=== PATIENT | male | born 1955 | race Caucasian/White ===

== ENCOUNTER 2023-05-24 10:10 | Inpatient (IN) | payer MEDICARE, SELFPAY ==
[2023-05-24] VITALS (42 sets, daily range): BP systolic 94–154; BP diastolic 52–94; PULSE 62–94; RESP 10–28; TEMP 35.8–37.1; O2SAT 91–100
--- NOTE | 2023-05-24 10:20 | ED.SOB ---
HPI - SOB/Dyspnea General Chief Complaint: Shortness of Breath/Dyspnea Stated Complaint: SOB Time Seen by Provider: 05/24/23 10:17 History of Present Illness HPI Narrative: Patient is a 68-year-old male with 75 pack-year smoking history presents today with shortness of breath ongoing for 1 week. He reports that 1 week ago he had sudden onset shortness of breath were he felt like ?fish out of water.He says it lasted for about 15 minutes and then it slowly got better. He does not feel back to his normal self but is feeling better. Feels like he can not quite catch his breath. He denies productive cough or fever. During the episode he felt like his chest was tight but now he is not quite feeling like his chest is tight but does have some difficulty shortness of breath with exertion. Related Data Home Medications Medication Instructions Recorded Confirmed No Known Home Medications 05/24/23 05/24/23 Allergies Allergy/AdvReac Type Severity Reaction Status Date / Time No Known Drug Allergies Allergy Verified 05/24/23 11:47 Review of Systems Review of Systems ROS Unobtainable: All systems reviewed & are unremarkable except as noted in HPI and below Patient History Social History household members: family Smoking Status: Current every day smoker alcohol intake: never Exam Initial Vital Signs Initial Vital Signs: Vital Signs Temperature 97.6 F 05/24/23 10:18 Pulse Rate 86 05/24/23 10:18 Respiratory Rate 20 05/24/23 10:18 Blood Pressure 144/82 H 05/24/23 10:18 Pulse Oximetry 97 05/24/23 10:18 Oxygen Delivery Method Room Air 05/24/23 10:18 GENERAL: Alert thin 68-year-old male and in [no acute] distress. HEENT: Head atraumatic,EOMI, pupils reactive, face symmetric, [moist] mucous membranes CARDIOVASCULAR: Regular rate and rhythm without murmurs, rubs or gallops. RESPIRATORY: Decreased breath sounds left side, clear on right ABDOMEN: Soft, nontender. Normoactive bowel sounds all 4 quadrants. No guarding or rebound. EXTREMITIES: Normal range of motion, no clubbing or edema. Neurovascularly intact NEUROLOGICAL: Alert and oriented x4. SKIN: Warm, dry, no laceration, no petechiae, no rashes or lesions. Procedures Chest Tube Chest Tube 1: Chest Tube Location: left and mid axillary line Size of Tube (cm): 20 Chest Tube Prep: Yes sterile drapes applied Local Anesthetic: lidocaine 1% and with epi Amount of anesthesia used (mL): 5 Incision Made With: #11 blade Post Procedure: sutured to skin and sterile dressing applied Tube Drainage: none Post Procedure CXR?: Yes Patient Tolerated Procedure: Yes Complications: tube needs to be repositioned Progress: tube advanced re xrayed and in more acceptable position Procedural Sedation Time out performed: Yes Indication: other (chest tube) IV Propofol dose (mg): 85 Intraservice time/total sedation time (min): 16 ED Sedation Level: Moderate (Concious) Patient Tolerated Procedure: Well and No complications Complications: none Course Orders Ordered: ED Orders 05/24/23 10:21 XR chest 1V Stat EKG-12 Lead Stat Measure peak expiratory flow ONCE RT Consult Eval and Treat NOW 05/24/23 10:35 Complete Blood Count AUTO DIFF Stat Comprehensive Metabolic Panel Stat Lactate (Lactic Acid) Stat NT-proBNP (BNP-Adult 18+) Stat Prothrombin Time INR Stat Troponin I Stat 05/24/23 11:31 Chest [XR chest 1V] Stat 05/24/23 11:46 Covid-19 + FLU A/B + RSV - PCR Stat Education, smoking cessation ONGOING 05/24/23 12:00 XR chest 1V DAILY Acetaminophen (Acetaminophen 325 Mg Tablet) 650 mg PO Q6H [facility] Last Admin: 05/24/23 18:16 Dose: Not Given Documented By: Admin: 05/24/23 14:12 Dose: Not Given Documented By: TLS Enoxaparin Sodium (Enoxaparin 40 Mg/0.4 Ml Syringe) 40 mg SUBCUT DAILY [facility] Ibuprofen (Ibuprofen 600 Mg Tablet) 600 mg PO Q6H [facility] Last Admin: 05/24/23 18:35 Dose: 600 mg Documented By: Admin: 05/24/23 14:16 Dose: 600 mg Documented By: TLS Naloxone HCl (Naloxone 0.4 Mg/Ml Vial) 0.2 mg IV Q2MIN PRN PRN Reason: Opiate Reversal Last Admin: 05/24/23 17:43 Dose: 0.2 mg Documented By: AMY Oxycodone HCl (Oxycodone Ir 5 Mg Tablet) 5 mg PO Q3H PRN PRN Reason: Pain, Moderate (4-6) Last Admin: 05/24/23 16:27 Dose: 5 mg Documented By: CLL Discontinued Medications Hydrocodone Bitart/Acetaminophen (Hydrocodone/Acet 5/325 Tablet) 1 tab PO NOW ONE Stop: 05/24/23 12:30 Last Admin: 05/24/23 12:33 Dose: 1 tab Documented By: SPF Albuterol/Ipratropium (Albuterol/Ipratropium 3 Ml Ampul) 6 ml INH NOW ONE Stop: 05/24/23 10:36 Last Admin: 05/24/23 10:37 Dose: 6 ml Documented By: LEÓNF Hydromorphone HCl (Hydromorphone 0.5 Mg Inj) 0.5 mg IV NOW ONE Stop: 05/24/23 11:46 Last Admin: 05/24/23 11:47 Dose: 0.5 mg Documented By: SPF Nicotine (Nicotine 21 Mg Patch) 21 mg TOP NOW ONE Stop: 05/24/23 12:30 Last Admin: 05/24/23 14:15 Dose: 21 mg Documented By: TLS Propofol (Propofol 200 Mg/20 Ml Vial) 55 mg 1 mg/kg (55 mg) IV NOW ONE Stop: 05/24/23 11:12 Last Admin: 05/24/23 11:15 Dose: 55 mg Documented By: OW Propofol (Propofol 200 Mg/20 Ml Vial) 30 mg IV NOW ONE Stop: 05/24/23 11:37 Last Admin: 05/24/23 11:24 Dose: 30 mg Documented By: OW Vital Signs Vital signs: Vital Signs - 8 hr 05/24/23 11:00 05/24/23 11:04 05/24/23 11:10 Pulse Rate 83 83 86 Respiratory Rate 10 L 10 L 14 Blood Pressure 143/90 H 131/86 138/94 H Pulse Oximetry 97 96 95 Oxygen Delivery Method Room Air Room Air Room Air Oxygen Flow Rate 05/24/23 11:15 05/24/23 11:19 05/24/23 11:20 Pulse Rate 84 85 82 Respiratory Rate 16 11 L 21 Blood Pressure 141/93 H 104/69 97/63 Pulse Oximetry 96 94 91 Oxygen Delivery Method Room Air Room Air Room Air Oxygen Flow Rate 05/24/23 11:25 05/24/23 11:00 05/24/23 11:35 Pulse Rate 92 H 86 88 Respiratory Rate 16 14 12 Blood Pressure 110/76 111/52 L Pulse Oximetry 100 99 Oxygen Delivery Method Ambu Bag Room Air Oxygen Flow Rate 15 05/24/23 11:36 05/24/23 11:40 05/24/23 11:40 Pulse Rate 86 85 Respiratory Rate 14 17 Blood Pressure 101/60 95/71 Pulse Oximetry 98 97 Oxygen Delivery Method Room Air Room Air Oxygen Flow Rate 05/24/23 11:45 05/24/23 11:45 Pulse Rate 78 Respiratory Rate 17 Blood Pressure 94/72 Pulse Oximetry 97 Oxygen Delivery Method Room Air Oxygen Flow Rate MDM - SOB/Dyspnea Lab Data 05/24/23 10:35 05/24/23 10:35 Labs: Lab Results 05/24/23 05/24/23 05/24/23 Range/Units 10:35 10:35 10:35 WBC 7.7 (4.5-11.0) X10^3/uL RBC 5.01 (4.5-5.9) X10^6/uL Hgb 16.4 (13.5-17.5) g/dL Hct 45.9 (41-53) % MCV 91.6 (80-100) fL MCH 32.8 (26-34) PG MCHC 35.8 (30-36) % RDW 14.2 (11.6-14.8) % Plt Count 261 (150-400) X10^3/uL Neut % (Auto) 60.1 (50-75) % Lymph % (Auto) 25.2 (25-40) % [place] % (Auto) 8.9 (3-14) % Eos % (Auto) 4.5 H (2-4) % Baso % (Auto) 1.3 (0-2) % Neut # (Auto) 4700 (3892-5267) /uL Lymph # (Auto) 2000 (6873-3157) /uL [place] # (Auto) 700 (0-900) /uL Eos # (Auto) 300 (0-450) /uL Baso # (Auto) 100 (0-100) /uL PT 12.9 H (10.1-12.7) SECONDS INR 1.1 (0.9-1.3) Sodium 136 L (137-145) mmol/L Potassium 4.2 (3.4-5.1) mmol/L Chloride 100 (98-107) mmol/L Carbon Dioxide 27 (22-32) mmol/L BUN 22 H (9-20) mg/dL Creatinine 0.95 (0.66-1.25) mg/dL Estimated GFR > 60 (>60) mL/min BUN/Creatinine Ratio 23.2 H (6-22) Glucose 110 (80-110) mg/dL Lactate (0.7-2.1) mmol/L Calcium 9.5 (8.4-10.2) mg/dL Total Bilirubin 0.8 (0.2-1.3) mg/dL AST 33 (17-59) IU/L ALT 24 (<50) IU/L Alkaline Phosphatase 62 (38-126) U/L Troponin I < 0.012 (0.01-0.034) ng/mL NT-Pro-B Natriuret Pep 41 (<125) pg/mL Total Protein 7.7 (6.3-8.2) g/dL Albumin 4.6 (3.5-5.0) g/dL Globulin 3.1 (1.7-4.1) g/dL Albumin/Globulin Ratio 1.5 (1.0-2.8) SARS-CoV-2 (PCR) (Negative) Influenza A (RT-PCR) (NEGATIVE) Influenza B (RT-PCR) (NEGATIVE) RSV (PCR) (Negative) 05/24/23 05/24/23 Range/Units 10:35 11:46 WBC (4.5-11.0) X10^3/uL RBC (4.5-5.9) X10^6/uL Hgb (13.5-17.5) g/dL Hct (41-53) % MCV (80-100) fL MCH (26-34) PG MCHC (30-36) % RDW (11.6-14.8) % Plt Count (150-400) X10^3/uL Neut % (Auto) (50-75) % Lymph % (Auto) (25-40) % [place] % (Auto) (3-14) % Eos % (Auto) (2-4) % Baso % (Auto) (0-2) % Neut # (Auto) (3187-1735) /uL Lymph # (Auto) (3525-0910) /uL [place] # (Auto) (0-900) /uL Eos # (Auto) (0-450) /uL Baso # (Auto) (0-100) /uL PT (10.1-12.7) SECONDS INR (0.9-1.3) Sodium (137-145) mmol/L Potassium (3.4-5.1) mmol/L Chloride (98-107) mmol/L Carbon Dioxide (22-32) mmol/L BUN (9-20) mg/dL Creatinine (0.66-1.25) mg/dL Estimated GFR (>60) mL/min BUN/Creatinine Ratio (6-22) Glucose (80-110) mg/dL Lactate 2.0 (0.7-2.1) mmol/L Calcium (8.4-10.2) mg/dL Total Bilirubin (0.2-1.3) mg/dL AST (17-59) IU/L ALT (<50) IU/L Alkaline Phosphatase (38-126) U/L Troponin I (0.01-0.034) ng/mL NT-Pro-B Natriuret Pep (<125) pg/mL Total Protein (6.3-8.2) g/dL Albumin (3.5-5.0) g/dL Globulin (1.7-4.1) g/dL Albumin/Globulin Ratio (1.0-2.8) SARS-CoV-2 (PCR) Negative (Negative) Influenza A (RT-PCR) Flu a negative (NEGATIVE) Influenza B (RT-PCR) Flu b negative (NEGATIVE) RSV (PCR) Negative (Negative) Imaging Data Chest x-ray: My Impression: large left pneumothorax Radiologist's Impression: PROCEDURE:? XR CHEST 1V ? INDICATIONS:? Shortness of breath ? TECHNIQUE:? One view of the chest was acquired.? ? COMPARISON:? None. ? FINDINGS:? ? Surgical changes and devices:? None.? ? Lungs and pleura:? Large left-sided pneumothorax with near complete collapse of the lower lobe and moderate collapse of the upper lobe.? There is moderate mediastinal shift to the right.? ? Mediastinum:? The mediastinum is deviated to the right. ? Bones and chest wall:? No suspicious bony lesions.? Overlying soft tissues appear unremarkable.? ? IMPRESSION: ? Left tension pneumothorax. ? Dr. Sifuentes discussed the above findings with Gabby Waller of the ER at 10am [place] time 05/24/23 ? Dictated by: Simon Sifuentes M.D. on 05/24/2023 at 9:58 CXR 2: Radiologist's Impression: PROCEDURE:? XR CHEST 1V ? INDICATIONS:? chest tube ? TECHNIQUE:? One view of the chest was acquired.? ? COMPARISON:? [facility], CR, XR CHEST 1V, 05/24/2023, 10:27. ? FINDINGS:? ? Surgical changes and devices:? Left apically oriented chest tube with side port projecting over the thoracic cavity. ? Lungs and pleura:? Lungs are clear.? Small residual basilar and apical pneumothorax, significantly decreased from comparison. ? Mediastinum:? Mediastinal contours appear normal.? Heart size is normal.? ? Bones and chest wall:? No suspicious bony lesions.? Overlying soft tissues appear unremarkable.? ? IMPRESSION:? Significant decrease in size of left-sided pneumothorax. Resolution of mediastinal shift. ? ? Dictated by: Simon Sifuentes M.D. on 05/24/2023 at 10:45? CXR 3: Radiologist's Impression: PROCEDURE:? XR CHEST 1V ? INDICATIONS:? pnx ? TECHNIQUE:? One view of the chest was acquired.? ? COMPARISON:? [facility], CR, XR CHEST 1V, 05/24/2023, 10:27.? [facility], CR, XR CHEST 1V, 05/24/2023, 11:26. ? FINDINGS:? ? Surgical changes and devices:? Left apically oriented chest tube.? ? Lungs and pleura:? Decreased AP:? Basilar pneumothorax.? Left airspace opacities which may reflect atelectasis versus edema.? No pleural effusions or pneumothorax.? ? Mediastinum:? Mediastinal contours appear normal.? Heart size is normal.? ? Bones and chest wall:? No suspicious bony lesions.? Overlying soft tissues appear unremarkable.? ? IMPRESSION:? Continued decrease in size of left pneumothorax with left airspace opacities likely representing atelectasis versus edema ? ? Dictated by: Simon Sifuentes M.D. on 05/24/2023 at 12:30? ECG Data Interpretation: Normal sinus rhythm rate 89 AZ interval 162 QRS [address] changes MDM Narrative Medical decision making narrative: Patient 68-year-old male history of tobacco abuse presents today with sudden onset shortness of breath 1 week ago resolving. Chest x-ray reviewed by myself shows a large pneumothorax. Patient's vitals are stable surprisingly no hypotension or significant hypoxia. He is moved to a different room procedure sedation chest tube placed. However after review it does need eat to be advanced. Dr. Lam updated on patient's symptoms test results agrees with advancement tube and accepts patient. Discharge Plan Departure Patient Disposition: Admitted As Inpatient Clinical Impression: Pneumothorax Admit Date/Time: 05/24/23 11:46 Admit Provider: Darvin Nobles
--- NOTE | 2023-05-24 10:21 | DI.RAD.S_ITS ---
PROCEDURE: XR CHEST 1V INDICATIONS: Shortness of breath TECHNIQUE: One view of the chest was acquired. COMPARISON: None. FINDINGS: Surgical changes and devices: None. Lungs and pleura: Large left-sided pneumothorax with near complete collapse of the lower lobe and moderate collapse of the upper lobe. There is moderate mediastinal shift to the right. Mediastinum: The mediastinum is deviated to the right. Bones and chest wall: No suspicious bony lesions. Overlying soft tissues appear unremarkable. IMPRESSION: Left tension pneumothorax. Dr. Sifuentes discussed the above findings with Gabby Waller of the ER at 10am [place] time 05/24/23 Dictated by: Simon Sifuentes M.D. on 05/24/2023 at 9:58 Approved by: Simon Sifuentes M.D. on 05/24/2023 at 10:03
[2023-05-24] MEDS: ALBUTEROL/IPRATROPIUM 3 ML AMPUL 6 ML INH (10:37)
[2023-05-24 10:48] LABS: Add Manual Diff / Slide Review NO; Basophils Absolute Auto 100 /uL (0-100); Basophils Percent Auto 1.3 % (0-2); Eosinophils Absolute Auto 300 /uL (0-450); Eosinophils Percent Auto 4.5 % (2-4); Hematocrit 45.9 % (41-53); Hemoglobin 16.4 g/dL (13.5-17.5); Lymphocytes Absolute Auto 2000 /uL (1100-4500); Lymphocytes Percent Auto 25.2 % (25-40); Mean Corpuscular HGB Conc 35.8 % (30-36); Mean Corpuscular Hemoglobin 32.8 PG (26-34); Mean Corpuscular Volume 91.6 fL (80-100); Monocytes Absolute Auto 700 /uL (0-900); Monocytes Percent Auto 8.9 % (3-14); Neutrophils Absolute Auto 4700 /uL (1500-7000); Neutrophils Percent Auto 60.1 % (50-75); Platelet Count 261 X10^3/uL (150-400); Red Blood Cell Count 5.01 X10^6/uL (4.5-5.9); Red Cell Distribution Width 14.2 % (11.6-14.8); White Blood Cell Count 7.7 X10^3/uL (4.5-11.0)
[2023-05-24 10:49] LABS: INR 1.1 (0.9-1.3); Prothrombin Time 12.9 SECONDS (10.1-12.7)
[2023-05-24 10:53] LABS: Alanine Aminotransferase 24 IU/L (<50); Albumin 4.6 g/dL (3.5-5.0); Albumin Globulin Ratio 1.5 (1.0-2.8); Alkaline Phosphatase 62 U/L (38-126); Aspartate Aminotransferase 33 IU/L (17-59); BUN Creatinine Ratio 23.2 (6-22); Bilirubin Total 0.8 mg/dL (0.2-1.3); Blood Urea Nitrogen 22 mg/dL (9-20); Calcium 9.5 mg/dL (8.4-10.2); Carbon Dioxide 27 mmol/L (22-32); Chloride 100 mmol/L (98-107); Estimated Glomerular Filt Rate > 60 mL/min (>60); Globulin 3.1 g/dL (1.7-4.1); Glucose 110 mg/dL (80-110); HEMOLYSIS 30 (0-50); Potassium 4.2 mmol/L (3.4-5.1); Sodium 136 mmol/L (137-145); Total Protein 7.7 g/dL (6.3-8.2)
--- NOTE | 2023-05-24 11:04 | PC.NURSE ---
This RN gave further education about chest tube placement and his plan of care to be admitted to the hospital. Pt has no further questions at this time. Pt airway is patent. He speaks in full clear sentences and respirations are even and unlabored. Pt is A&Ox4 and his daughter is at the bedside. RT at bedside, crash cart in room, RN is setting up for chest tube placement, wall suction on and ready and pt is on continuous cardiac monitoring with End tidal, SpO2 and BP going Q10min.
[2023-05-24 11:05] LABS: NT-proBNP (BNP-Adult 18+) 41 pg/mL (<125); Troponin I < 0.012 ng/mL (0.01-0.034)
[2023-05-24] MEDS: propofoL 200 MG/20 ML VIAL 55 MG IV (11:15)
[2023-05-24] MEDS: propofoL 200 MG/20 ML VIAL 30 MG IV (11:24)
--- NOTE | 2023-05-24 11:31 | DI.RAD.S_ITS ---
PROCEDURE: XR CHEST 1V INDICATIONS: chest tube TECHNIQUE: One view of the chest was acquired. COMPARISON: [facility], CR, XR CHEST 1V, 05/24/2023, 10:27. FINDINGS: Surgical changes and devices: Left apically oriented chest tube with side port projecting over the thoracic cavity. Lungs and pleura: Lungs are clear. Small residual basilar and apical pneumothorax, significantly decreased from comparison. Mediastinum: Mediastinal contours appear normal. Heart size is normal. Bones and chest wall: No suspicious bony lesions. Overlying soft tissues appear unremarkable. IMPRESSION: Significant decrease in size of left-sided pneumothorax. Resolution of mediastinal shift. Dictated by: Simon Sifuentes M.D. on 05/24/2023 at 10:45 Approved by: Simon Sifuentes M.D. on 05/24/2023 at 10:46
--- NOTE | 2023-05-24 11:37 | PC.NURSE ---
L sided chest tube has been placed, sutured and dressed. Chest XR applied to verify placement and re-expansion of lungs. Pt is alert and reports pain to L chest wall. Md notified of pain. Respirations are unlabored and pt has equal chest rise. Pt's skin is warm pink and dry. Pt has strong cough.
[2023-05-24] MEDS: HYDROMORPHONE 0.5 MG INJ IV (11:47)
--- NOTE | 2023-05-24 12:00 | DI.RAD.S_ITS ---
PROCEDURE: XR CHEST 1V INDICATIONS: pnx TECHNIQUE: One view of the chest was acquired. COMPARISON: [facility], CR, XR CHEST 1V, 05/24/2023, 10:27. [facility], CR, XR CHEST 1V, 05/24/2023, 11:26. FINDINGS: Surgical changes and devices: Left apically oriented chest tube. Lungs and pleura: Decreased AP: Basilar pneumothorax. Left airspace opacities which may reflect atelectasis versus edema. No pleural effusions or pneumothorax. Mediastinum: Mediastinal contours appear normal. Heart size is normal. Bones and chest wall: No suspicious bony lesions. Overlying soft tissues appear unremarkable. IMPRESSION: Continued decrease in size of left pneumothorax with left airspace opacities likely representing atelectasis versus edema Dictated by: Simon Sifuentes M.D. on 05/24/2023 at 12:30 Approved by: Simon Sifuentes M.D. on 05/24/2023 at 12:33
[2023-05-24 12:31] LABS: Influenza A - CEPHEID Flu A NEGATIVE (NEGATIVE); Influenza B - CEPHEID Flu B NEGATIVE (NEGATIVE); Respiratory Syncytial Virus Negative (Negative)
[2023-05-24 12:32] LABS: COVID-19 CEPHEID 4-PLEX PCR Negative (Negative)
[2023-05-24] MEDS: HYDROCODONE/ACET 5/325 TABLET 1 TAB PO (12:33)
--- NOTE | 2023-05-24 13:04 | PC.NURSE ---
Patient was administered pain medications PO (see MAR) with water. Pt was able to take two sips of water. Pt still felt the need to swallow the pill and had a third sip of water, which he aspirated with. Immediately pt was sat up and pt's mouth was suctioned. Pt sitting up and catching his breath. oxygen saturation 96% room air.
[2023-05-24] MEDS: NICOTINE 21 MG PATCH TOP (14:15)
[2023-05-24] MEDS: IBUPROFEN 600 MG TABLET PO ×3 (14:16→23:17)
--- NOTE | 2023-05-24 15:56 | PC.NURSE ---
Addendum entered by Suha Piña R.N. 05/24/23 17:55: Patient given narcan after taking 5mg of oral oxycodone. He became clammy and sweaty and complained of not feeling well. Talked to hospitalist for a recommendation on what to do as patient was completely alert and oriented x4, and awake. His idea was to give Narcan. Phoned Dr. Nobles and he was agreeable to give patient the narcan. This was given and patient is feeling much better. He is drinking water without any choking episodes. Original Note: Patients Chest tube insertion site dressing is cdi. Patient given some ibuprofen and is comfortable and resting. Chest tube to 20mm of suction and there are no bubbles present in chamber of chest tube. Putting out minimal drainage. Will reassess patient and if he needs pain medication, will give him some oxycodone. He states that he is not a fan of narcotics. Resting comfortably at this time.
[2023-05-24] MEDS: OXYCODONE IR 5 MG TABLET PO (16:27)
[2023-05-24] MEDS: NALOXONE 0.4 MG/ML VIAL 0.2 MG IV (17:43)
[2023-05-24] MEDS: ACETAMINOPHEN 325 MG TABLET 650 MG PO (23:16)
[2023-05-25] VITALS (11 sets, daily range): BP systolic 116–130; BP diastolic 76–91; PULSE 70–80; RESP 16–22; TEMP 36.6–37.4; O2SAT 94–98
[2023-05-25] MEDS: ACETAMINOPHEN 325 MG TABLET 650 MG PO (05:58)
[2023-05-25] MEDS: IBUPROFEN 600 MG TABLET PO (05:58)
--- NOTE | 2023-05-25 09:06 | CM.DANOTE ---
DCP: Case received, EMR reviewed and met with patient. Daughter was at bedside. Introduced self and role. Was able to obtain information regarding patient's baseline activity level prior to hospitalization. DCP assessment completed with information currently available. Patient is a 68 year old male who admitted yesterday morning to the care of the hospitalist team. PCP: None currently, spouse is looking into getting patient appt with her primary care provider, Dr. Sepulveda. Payer: confirmed: Medicare. Patient came to the hospital via private vehicle secondary to having increased shortness of breath. Notes indicae that patient is a smoker. Patient had been having difficulties catching his breath. Patient was diagnosed with pneumothorax, and currently has a chest tube in place. Met with patient in his room, he was laying in bed, daughter at bedside. Patient resides here in [place] with spouse, [place]. He is employed at [employer], and is independent at baseline. He is a smoker. Daughter indicated, he got this pneumothorax from smoking. He does not have a primary provider, but mentioned that his spouse sees Dr. Sepulveda at [facility], and is working on getting patient in. Patient also sees a chiropractor for left shoulder pain, which is bothering him today. P: DCP to continue to follow. Plan is home when deemed medically stable. May need to follow up with a filler leaf cutter long. Jazz Rojo RN/Occupational Therapist Assistants Discharge Planning/Care Management CM Discharge Assessment Start: 05/25/23 09:04 Freq: Status: Active Protocol: Document 05/25/23 09:05 (Rec: 05/25/23 09:06 [id number]) Discharge Planning Assessment Assigned Retail Representative Jazz Rojo RN/Occupational Therapist Assistants Advance Directives? No History Provided By Patient,Family Member,Medical Record Prior Living Arrangements House Household Members spouse,family Type of transporation used prior to Drives own vehicle admit Independent with ADL's Yes Is patient alert and oriented? Yes Caregiver for Another No Barriers to Discharge No Comment Does not have primary care provider, but spouse will work on getting patient in to see Dr. Sepulveda., which is her provider. Discharge Plan Home Transportation Arrangement Daughter or spouse. Referrals Initiated None needed Whiteboard Updated in Patient Room with Yes name and ext. # of Retail Representative Review Status In Process Next Review Type Continued Stay Review
[2023-05-25] MEDS: ENOXAPARIN 40 MG/0.4 ML SYRINGE SUBCUT (09:17)
--- NOTE | 2023-05-25 09:24 | DI.CT.S_ITS ---
PROCEDURE: CT CHEST W CON INDICATIONS: SPONTANEUOS PNEMOTHORAX TECHNIQUE: After the administration of intravenous contrast, 5 mm thick sections acquired from the pulmonary apices to the posterior costophrenic angles. 1 mm axial lung, 5 mm thick coronal and sagittal reformats and 7 mm axial MIP were acquired. For radiation dose reduction, the following was used: automated exposure control, adjustment of mA and/or kV according to patient size. COMPARISON: [facility], CR, XR CHEST 1V, 05/24/2023, 12:11. FINDINGS: Image quality: Good Lungs and pleura: Emphysema. Scattered scarring and atelectasis. Moderate airspace disease is seen in the left lung. More focal consolidation is seen at the left base measuring about 2.6 x 1.8 cm (5/36). No pleural effusions on the right. A trace left pleural effusion is present. A left chest tube terminates at the left apex. A trace pneumothorax is present. Adjacent left chest wall subcutaneous emphysema is seen. Mediastinum, heart, and esophagus: No hiatal hernia. Normal heart size. Coronary and annular calcifications of the heart. Prominent mediastinal hilar lymph nodes may be reactive in this clinical setting, attention on follow-up. Debris and fluid is seen in the left-sided bronchi. Chest wall and thyroid: Body habitus suggestive of chronic obstructive lung disease. Chest wall is otherwise unremarkable. Upper abdomen: No gross abnormality, partially visualized. Bones: No acute or suspicious osseous finding. IMPRESSION: Left chest tube in place. The tip is at the left lung apex. Trace residual pneumothorax. Trace left pleural effusion. Left-sided endobronchial debris. Moderate left airspace disease in the lingula and lower lobe, likely infectious/inflammatory, possibly related to aspiration. A more focal consolidation measuring 2.6 x 1.8 cm is seen at the left base. Short interval follow-up chest CT recommended to assess for evolution depending on clinical course. Emphysematous changes. Dictated by: Orlando Devi M.D. on 05/25/2023 at 10:31 Approved by: Orlando Devi M.D. on 05/25/2023 at 10:37
[2023-05-25] MEDS: GABAPENTIN 100 MG CAPSULE 200 MG PO ×3 (09:59→20:08)
[2023-05-25] MEDS: CELECOXIB 200 MG CAPSULE PO ×2 (09:59→20:08)
--- NOTE | 2023-05-25 11:20 | PM.HP.1 ---
History of Present Illness History of Present Illness Date Patient Seen: 05/25/23 Time Patient Seen: 08:30 Chief complaint: SOB Narrative: Seen and treated in ED for left sided, spontaneous PTX. Patient symptoms started about a week ago and just never improved. Had sharp pain in chest and shortness of breath. H/o smoking. And a history of shoulder problems. He biggest complaint today is the shoulder pain. [facility] Social History household members: spouse and family Smoking Status: Current every day smoker alcohol intake: never Meds Home Medications and Allergies Home Medications Medication Instructions Recorded Confirmed Type No Known Home Medications 05/24/23 05/24/23 History Allergies Allergy/AdvReac Type Severity Reaction Status Date / Time No Known Drug Allergies Allergy Verified 05/24/23 11:47 Review of Systems Review of Systems ROS: Yes All systems reviewed with the patient and are negative except as otherwise documented Exam Vital Signs (past 8 hours): - 05/25/23 04:45 05/25/23 08:00 05/25/23 09:00 Temperature 98.8 F 98.3 F Pulse Rate 71 75 Respiratory Rate 18 21 Blood Pressure 128/91 H 130/80 Pulse Oximetry 96 94 Oxygen Delivery Method Room Air Oxygen Flow Rate 0 0 05/25/23 09:00 Temperature Pulse Rate Respiratory Rate Blood Pressure Pulse Oximetry 97 Oxygen Delivery Method Room Air Oxygen Flow Rate Oxygen Delivery Method Room Air Oxygen Flow Rate 0 Const General: cooperative and frail appearing Nutritional Appearance: thin Orientation: alert, awake and oriented x3 HENMT Head: normocephalic and atraumatic Ears: hearing grossly normal bilaterally Eyes General: appearance normal, both eyes and all related structures Sclera: sclerae normal Neck Neck: trachea midline Chest Chest: normal inspection of the chest Other: no air leak in chest tube Resp Effort & Inspection: normal respiratory effort and able to speak in complete sentences Cardio Rate: regular rate Rhythm: regular rhythm GI Inspection: normal to inspection Palpation: soft Skin General: atrophy Neuro General: patient alert, patient awake and patient oriented x3 Cognition: normal cognition Extrem Left upper extremity: shoulder/upper arm (no deformities on PE or CXR) Psych Mental Status: mental status grossly normal Judgment: judgment good Objective Labs 05/24/23 10:35 05/24/23 10:35 Labs: Laboratory Results - last 24 hr 05/24/23 11:46 SARS-CoV-2 (PCR) Negative Influenza A (RT-PCR) Flu a negative Influenza B (RT-PCR) Flu b negative RSV (PCR) Negative Assessment & Plan Assessment & Plan narrative: Spontaneous left PTX likely due to bleb CT scan of Chest confirms Bleb disease, no masses. Emphysema. No residual PTX. Plan: Water seal, repeat CXR in am with probable removal of chest tube tomorrow. Have PCP order outpatient PT vs ortho consult for left should pain. PT here. Time Spent With Patient Time with patient: 50 to 69 minutes with 50% spent counseling/coordinating care Quality VTE Deep Vein Thrombosis/Pulmonary Embolism Present on Admission: No
--- NOTE | 2023-05-25 15:34 | PT.IIE ---
Physical Therapy Inpatient Evaluation/Re-Eval M1 PT/OT-IP Prior Functional Status Start: 05/25/23 11:53 Freq: NEEDED Status: Active Protocol: Document 05/25/23 15:34 AW (Rec: 05/25/23 15:50 AW [id number]) Medical Review Prior Functional Status Medical History Reviewed Yes Communication WNL. No known deficits. Mobility and Gait Independent without AD and without meaningful limitation. Activities of Daily Living and IADL's Independent. Social History Household Members spouse,family Living Arrangements House Number of Floors (Floors) One Floor Number of Stairs To Enter/Railing? 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 Son lives nearby. M2 PT-IP Current Condition Start: 05/25/23 11:53 Freq: NEEDED Status: Active Protocol: Document 05/25/23 15:34 AW (Rec: 05/25/23 15:50 AW [id number]) Physical Therapy Current Condition Current Condition Evaluation Date 05/25/23 Treatment Diagnosis left pneumothorax; chronic left shoulder pain Onset Date 05/18/23 M3 PT-IP Subjective Start: 05/25/23 11:53 Freq: NEEDED Status: Active Protocol: Document 05/25/23 15:34 AW (Rec: 05/25/23 15:50 AW [id number]) Subjective Physical Therapy Visit Type Type Initial Evaluation Visit Start Time 15:14 Visit Stop Time 15:34 Total Visit Minutes 20 Physical Therapy Visit Comments Patient Comments Pt is willing to participate with PT Therapy Pain Assessment Pain When Pain Assessed During Mobility Pain Present Pain Present Pain Reported Location Left Shoulder Scale Used not quantified Pain Management Techniques Apply Cold,Modification of Treatment,Re-positioning, Timing of Activity with Medications M4 PT-IP Mobility and Gait Start: 05/25/23 11:53 Freq: NEEDED Status: Active Protocol: Document 05/25/23 15:34 AW (Rec: 05/25/23 15:50 AW [id number]) PT-Bed Mobility Assessment Supine to Sit Supine to Sit Standby Assistance Sit to Supine Sit to Supine Independent PT-Transfer Assessment Sit to and From Stand Sit to and from Stand Standby Assistance Equipment Transfer Assistive Device None Orthotic/Prosthetic Devices or Brace: Yes Transfers Transfer Destination Bed,Chair Transfer Technique Stand Step Pivot Transfer Ability Level of Assist Standby Assistance Comments Mobility Comments Pt was found resting in bed. He cautiously transitioned to sitting EOB as PT managed chest tube (on water seal). PT applied shoulder sling to LUE per MD orders. Pt stood and transferred to the chair with SBA required only for line management. Pt stood again and walked to the mirror. PT educated pt on donning and doffing the sling. Pt continued to ambulate around the room a total of 50 feet with no overt LOB or significant gait deviations other than slowed speed due to appropriate caution. He declined to walk in the hallway. With step stool and footboard as railing, pt demonstrated SBA stair climbing. Pt returned to the bed, transferring back to supine SBA. Educated pt on positioning for the left shoulder. Gait Assessment Gait Gait Assistance Required: Standby Assistance Distance (Feet) 50 Assistive Devices Assistive Device None Orthotic/Prosthetic Devices or Brace: Yes Comments Gait Comments See mobility comments. Stair Climbing Assessment Evaluation Level of Assist On Stairs Standby Assistance Devices Stair Climbing Assistive Devices None Technique/Endurance Stair Climbing Direction Ascend and Descend Stair Climbing Technique Step to Step Number of Steps Climbed 1 Query Text: Stair Climbing Set # Repetitions (reps) 4 PT-Balance Assessment Sitting Balance and Reactions Static Sitting Balance Ability Good Dynamic Sitting Balance Ability Good Standing Balance and Reactions Static Standing Balance Ability Good Dynamic Standing Balance Ability Good Device Used none Balance Tests Romberg WNL EO and EC M5 PT-IP Objective Assessments Start: 05/25/23 11:53 Freq: NEEDED Status: Active Protocol: Document 05/25/23 15:34 AW (Rec: 05/25/23 15:50 AW [id number]) Orientation Orientation/Cognition Level of Alertness Alert Orientation Name,Day of Week,Place, Situation Language Function Ability No Deficits Noted Safety Awareness Understands Safety Issues Memory Description No Deficits Noted Gross Range of Motion Upper Extremity ROM Assessment Left Impaired Lower Extremity ROM Assessment Within Functional Limits Strength Upper Extremity Strength Assessment Left Impaired Lower Extremity Strength Assessment Within Functional Limits Comments Strength Comments BLE grossly 5/5. RUE WFL. LUE with painful AROM and PROM. Sensation Assessment Sensation Gross Sensation WNL M6 PT-IP Treatment Start: 05/25/23 11:53 Freq: NEEDED Status: Active Protocol: Document 05/25/23 15:34 AW (Rec: 05/25/23 15:50 AW [id number]) Physical Therapy Treatment Education Education Provided Safety Brace Education [place],Patient Equipment Issued Equipment Type and Company Shoulder sling provided per MD orders. ([facility]) M7 PT-IP Assessment and Plan Start: 05/25/23 11:53 Freq: NEEDED Status: Active Protocol: Document 05/25/23 15:34 AW (Rec: 05/25/23 15:50 AW [id number]) PT Summary Assessment and Plan Summary Assessment Summary Richie is a 68 yo man seen for PT evaluation while admitted with spontaneous left pneumothorax. He has a chest tube this date. PLOF: Pt is independent in all regards at baseline. 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 Pt has long-standing shoulder pain (left worse than right). CLOF: Pt requires no more than SBA for mobility - primarily to manage chest tube line. Pt does present with painful AROM and PROM of the left shoulder consistent with osteoarthritis which was likely exacerbated by movement of the limb during chest tube placement. Pt is right hand dominant and is mobilizing well with shoulder sling provided per MD orders. Pt has no further acute PT needs. Recommend discharge home with assist and outpatient PT to address chronic left shoulder pain. Frequency of Treatment Frequency Of Treatment Discharge Precautions Brace LUE sling for comfort Recommendations To Nursing Amount of Assist Needed Standby Assistance Discharge Recommendations PT Discharge Recommendations Home with Assistance, Outpatient PT Transportation Needs at Discharge Private Vehicle
[2023-05-26 00:26] VITALS: BP 118/80; PULSE 70; RESP 16; TEMP 36.4; O2SAT 95
[2023-05-26 03:00] VITALS: O2SAT 94
[2023-05-26 04:41] VITALS: BP 131/76; PULSE 77; RESP 16; TEMP 36.4; O2SAT 92
--- NOTE | 2023-05-26 05:38 | DI.RAD.S_ITS ---
PROCEDURE: XR CHEST 1V INDICATIONS: PTX TECHNIQUE: One view of the chest was acquired. COMPARISON: compared to the [facility], CT, CT CHEST W CON, 05/25/2023, 9:48. [facility], CR, XR CHEST 1V, 05/24/2023, 12:11. [facility], CR, XR CHEST 1V, 05/24/2023, 11:26. FINDINGS: Surgical changes and devices: Left-sided chest tube is seen in stable position. Lungs and pleura: Left apical pneumothorax has decreased in size with trace residual air in the pleural space. Stable left lung opacities. Trace left pleural effusion. Right lung is clear. Lungs are hyperexpanded bilaterally. Mediastinum: Mediastinal contours appear normal. Heart size is normal. Bones and chest wall: Mild subcutaneous emphysema related to the chest tube, similar when compared to the prior exam. IMPRESSION: Stable left-sided chest tube with trace residual pneumothorax. Stable left-sided pulmonary opacities. There is no significant discrepancy when compared to the overnight preliminary report. Approved by: Harvey Lopez M.D. on 05/26/2023 at 8:06
[2023-05-26 08:00] VITALS: BP 110/75; PULSE 75; RESP 14; TEMP 36.5; O2SAT 95
[2023-05-26] MEDS: CELECOXIB 200 MG CAPSULE PO (08:08)
[2023-05-26] MEDS: ENOXAPARIN 40 MG/0.4 ML SYRINGE SUBCUT (08:08)
[2023-05-26] MEDS: GABAPENTIN 100 MG CAPSULE 200 MG PO ×2 (08:08→14:06)
[2023-05-26 11:00] VITALS: O2SAT 96
--- NOTE | 2023-05-26 12:15 | PM.PN.1 ---
Subjective Subjective Date Patient Seen: 05/26/23 Time Patient Seen: 12:15 Interval history: No issues over night, no air leak, repeat CXR this am on water seal shows stable enough for tube removal. Exam Vital Signs (past 8 hours): - 05/26/23 04:41 05/26/23 08:00 Temperature 97.6 F 97.7 F Pulse Rate 77 75 Respiratory Rate 16 14 Blood Pressure 131/76 110/75 Pulse Oximetry 92 95 Oxygen Flow Rate 0 0 Oxygen Delivery Method Room Air Oxygen Flow Rate 0 Narrative Exam Narrative: no air leak in Chest tube atrium. No SOB. Pain better controlled. Objective Labs 05/24/23 10:35 05/24/23 10:35 [facility] Social History household members: spouse and family Smoking Status: Current every day smoker alcohol intake: never Assessment & Plan Assessment & Plan narrative: Small residual PTX, stable. Plan: Chest tube removed and post removal CXR ordered. If CXR is ok then discharge home. Time Spent With Patient Time with patient: less than 30 minutes Quality VTE Deep Vein Thrombosis/Pulmonary Embolism Present on Admission: No
--- NOTE | 2023-05-26 13:16 | DI.RAD.S_ITS ---
PROCEDURE: XR CHEST 1V INDICATIONS: chest tube removed TECHNIQUE: One view of the chest was acquired. COMPARISON: [facility], CR, XR CHEST 1V, 05/26/2023, 5:33. [facility], CR, XR CHEST 1V, 05/24/2023, 12:11. FINDINGS: Surgical changes and devices: None. Lungs and pleura: New small left pneumothorax. Normal contour of the diaphragm. Left basilar airspace opacity. Mediastinum: Mediastinal contours appear normal. Heart size is normal. Bones and chest wall: No suspicious bony lesions. Overlying soft tissues appear unremarkable. IMPRESSION: New small left pneumothorax, without evidence of tension. Stable left basilar airspace opacity. Dictated by: Elmer Alexander M.D. on 05/26/2023 at 13:31 Approved by: Elmer Alexander M.D. on 05/26/2023 at 13:32
--- NOTE | 2023-05-26 15:52 | PC.NURSE ---
Pt is A&OX4, this a.m. VSS, afebrile on RA. CT connected to gravity 20 mmhg. Patient is independent in the room. He reports pain controlled to L shoulder with celebrex and gabapentin. MD at bedside this a.m. and clears him for discharge this afternoon after CXR post chest tube removal. He verbalizes understanding of medications, site care, s/sx of worsening symptoms, as well as follow up appointments. He is escorted via w/ch to private vehicle with and all of his belongings for discharge home at approximately 1411 this afternoon.
== END 2023-05-26 14:11 | disposition home or self-care (01) | DRG 201 ==
LOC: ED 11:46 → AC 11:47
PROVIDERS: Admitting Provider Surgery; Emergency Provider Emergency Medicine; Referring Provider Emergency Medicine; Visit Provider Surgery
DX: J93.83 Other pneumothorax (principal); J43.9 Emphysema, unspecified; F17.210 Nicotine dependence, cigarettes, uncomplicated
CPT/HCPCS: 0241U; 32551; 36415; 71045; 71260; 80053; 83605; 83880; 84484; 85025; 85610; 93005; 94150; 94640; 96374; 97162; 99152; 99222; 99238; 99285; J1170; J1650; J2310; J2704; Q9967

== ENCOUNTER → 2023-06-02 09:52 | Outpatient (CLI) | payer MEDICARE, SELFPAY ==
--- NOTE | 2023-06-02 09:54 | DI.RAD.S_ITS ---
PROCEDURE: XR CHEST 2V INDICATIONS: pneumothorax follow up TECHNIQUE: 2 views of the chest were acquired. COMPARISON: [facility], CR, XR CHEST 1V, 05/26/2023, 12:48. [facility], CR, XR CHEST 1V, 05/26/2023, 5:33. FINDINGS: Surgical changes and devices: None. Lungs and pleura: Similar moderate left-sided pneumothorax. Mediastinum: Mediastinal contours are normal. Heart size is normal. Midline. Bones and chest wall: No suspicious bony abnormalities. Soft tissues appear unremarkable. IMPRESSION: Similar moderate left pneumothorax, without evidence of tension. Dictated by: Elmer Alexander M.D. on 06/02/2023 at 13:33 Approved by: Elmer Alexander M.D. on 06/02/2023 at 13:33
== END ==
PROVIDERS: PCP Family Medicine; Referring Provider Internal Medicine Critical Care Medicine; Visit Provider Internal Medicine Critical Care Medicine
DX: J93.9 Pneumothorax, unspecified (principal); J44.9 Chronic obstructive pulmonary disease, unspecified; J93.11 Primary spontaneous pneumothorax; R91.8 Other nonspecific abnormal finding of lung field
CPT/HCPCS: 71046; 99214

== ENCOUNTER → 2023-07-02 07:13 | Outpatient (CLI) | payer MEDICARE, SELFPAY ==
--- NOTE | 2023-07-02 07:15 | DI.RAD.S_ITS ---
PROCEDURE: XR SHOULDER LT MIN 2V INDICATIONS: L shoulder pain for 2 months TECHNIQUE: 3 views of the shoulder were acquired. COMPARISON: None. FINDINGS: Bones: No fractures or dislocations. No suspicious bony lesions. Visualized ribs appear intact. Soft tissues: No suspicious soft tissue calcifications. IMPRESSION: No acute bony abnormality. Dictated by: Elmer Alexander M.D. on 07/02/2023 at 11:28 Approved by: Elmer Alexander M.D. on 07/02/2023 at 11:28
--- NOTE | 2023-07-02 07:15 | DI.CT.S_ITS ---
PROCEDURE: CT CHEST WO CON INDICATIONS: pneumothorax and left sided infiltrate TECHNIQUE: Noncontrast 5 mm thick sections acquired from the pulmonary apices to the posterior costophrenic angles. 1 mm lung window, 5 mm thick coronal and sagittal and 7 mm axial MIP reformats were then acquired. For radiation dose reduction, the following was used: automated exposure control, adjustment of mA and/or kV according to patient size. COMPARISON: , CT, CT CHEST W CON, 05/25/2023, 9:48. FINDINGS: Image quality: Excellent. Lungs and pleura: Confluent centrilobular emphysema. Increased pulmonary markings. Left upper lobe wedge resections. No pneumothorax. Trace left layering pleural fluid. Resolved consolidation of the left lower lobe. 3 millimeter solid nodule, lateral right upper lobe (series 3, image 164). Mediastinum: Heart size is normal. No pericardial effusion. No mediastinal adenopathy by size criteria. Thoracic aorta and central pulmonary arteries are normal in size. Esophagus is normal in caliber. No hiatal hernia. Marked coronary artery calcifications. Bones and chest wall: No suspicious bony lesions. No vertebral body compression fractures. No axillary or supraclavicular adenopathy by size criteria. Thyroid gland is unremarkable . Abdomen: Visualized upper abdominal solid organs and bowel loops appear normal in the absence of contrast. IMPRESSION: Resolved left pneumothorax. Small layering left pleural effusion is unchanged from prior. Resolved left basilar consolidation. 3 millimeter solid nodule in the right upper lobe. Consider 12 month follow-up per Fleischner society guidelines. Dictated by: Elmer Alexander M.D. on 07/02/2023 at 9:40 Approved by: Elmer Alexander M.D. on 07/02/2023 at 9:46
== END ==
PROVIDERS: PCP Family Medicine; Referring Provider Internal Medicine Critical Care Medicine; Visit Provider Internal Medicine Critical Care Medicine
DX: J93.9 Pneumothorax, unspecified (principal); J44.9 Chronic obstructive pulmonary disease, unspecified; R91.8 Other nonspecific abnormal finding of lung field; M25.512 Pain in left shoulder
CPT/HCPCS: 71250; 73030; 94060; 94726; 94729

== ENCOUNTER → 2023-07-10 08:11 | Outpatient (CLI) | payer MEDICARE, SELFPAY ==
[2023-07-10 09:07] LABS: Hemoglobin A1C% w Est Avg Glu 4.9 % (4.0-6.0)
[2023-07-10 09:30] LABS: Cholesterol 241 mg/dL (140-199); HDL Cholesterol 81 mg/dL (40-60); LDL Cholesterol Calculated 128 mg/dL (<100); Triglycerides 158 mg/dL (35-150)
[2023-07-10 10:49] LABS: Hep C Virus Ab w/Reflex Quant NEGATIVE s/c (NEGATIVE)
== END ==
PROVIDERS: PCP Family Medicine; Referring Provider Family Medicine; Visit Provider Family Medicine
DX: Z00.00 Encounter for general adult medical examination without abnormal findings (principal)
CPT/HCPCS: 36415; 80061; 83036; 86803

== ENCOUNTER → 2024-06-10 13:41 | Outpatient (CLI) | payer MEDICARE, SELFPAY ==
--- NOTE | 2024-06-10 13:42 | DI.CT.S_ITS ---
PROCEDURE: CT CHEST WO CON INDICATIONS: lung nodule TECHNIQUE: Noncontrast 2.0-2.5 mm thick sections acquired from the pulmonary apices to the posterior costophrenic angles. 7 mm thick axial MIP and 5 mm coronal and sagittal reformats were then acquired. For radiation dose reduction, the following was used: automated exposure control, adjustment of mA and/or kV according to patient size. COMPARISON: [facility], CT, CT CHEST WO CON, 07/02/2023, 7:17. FINDINGS: Image quality: Diagnostic. Lower Neck: No enlarged lymph nodes. Thyroid: No thyroid nodules which require sonographic follow up, per consensus guidelines.. Axillae: No enlarged lymph nodes. Chest Wall: Unremarkable. Bones: No aggressive appearing bony lesions.. Lungs and Pleura: Advanced centrilobular emphysema. Biapical scarring is again seen. Post surgical changes are again noted in posterior aspect of left mid to lower lung acuna with scarring/atelectasis. Previously described 3 mm solid nodule in lateral right upper lobe is unchanged series 3, image 164. No new pulmonary nodule is seen. Central and peripheral airway is patent. Heart: Heart size is normal. No pericardial effusion. Thoracic Vessels: The aorta and pulmonary arteries demonstrate normal size. Moderate atherosclerotic calcifications in coronary arteries are seen. Mediastinum and Agustina: No enlarged lymph nodes. Esophagus: No wall thickening. No hiatal hernia. Upper Abdomen: Visualized upper abdomen solid organs and bowel loops appear normal. IMPRESSION: 1. Stable 3 mm right upper lobe nodule likely represent benign process. No further follow-up of this nodule is indicated. No new pulmonary nodule is seen. 2. Stable postsurgical changes in posterior aspect of left mid to lower lung field with scarring/atelectasis. Biapical scarring. No pleural effusion or pneumothorax. 3. No mediastinal or hilar lymphadenopathy . [id number] atherosclerotic disease in coronary vessels. Fleischner Society criteria for SOLID lung nodule followup. Nodule size (mm)Low-risk patientHigh-risk patient<6 (single or multiple)No routine followup.Optional CT at 12 months. 6-8 (single or multiple)CT at 6-12 months, then optional CT at 18-24 mo.CT at 6-12 months, then CT at 18-24 months. >8 (single)CT at 3 months, PET-CT, or biopsy. Same as for low-risk pts. >8 (multiple)CT at 3-6 months, then optional CT at 18-24 mo.CT at 3-6 months, then CT at 18-24 months. Fleischner Society criteria for SUB-SOLID lung nodule followup. Solitary pure ground-glass nodules<6 mm (ground glass or part solid)No followup needed. 6 mm or larger (ground glass)CT at 6-12 months to confirm persistence, then CT every 2 years until 5 years.6 mm or larger (part solid)CT at 3-6 months to confirm persistence, then annual CT until 5 years if unchanged and solid component remains <6 mm. Multiple sub-solid nodules<6 mmCT at 3-6 months, then CT consider at 2 & 4 years for high risk patients. [address] at 3-6 months. Subsequent management based on most suspicious lesions. Recommendations do not apply to lung cancer screening, patients with immunosuppression, or patients with known primary cancer. Dictated by: Paramjit Cotto M.D. on 06/10/2024 at 17:37 Approved by: Paramjit Cotto M.D. on 06/10/2024 at 21:43
== END ==
PROVIDERS: PCP Family Medicine; Referring Provider Internal Medicine Critical Care Medicine; Visit Provider Internal Medicine Critical Care Medicine
DX: R91.1 Solitary pulmonary nodule (principal); J43.2 Centrilobular emphysema; J98.11 Atelectasis; J98.4 Other disorders of lung; I25.10 Atherosclerotic heart disease of native coronary artery without angina pectoris
CPT/HCPCS: 71250

== ENCOUNTER → 2024-07-04 09:18 | Outpatient (CLI) | payer MEDICARE, SELFPAY ==
[2024-07-04 10:55] LABS: Cholesterol 223 mg/dL (140-199); HDL Cholesterol 64 mg/dL (40-60); LDL Cholesterol Calculated 129 mg/dL (<100); Triglycerides 150 mg/dL (35-150)
== END ==
LOC: LAB 09:19
PROVIDERS: PCP Family Medicine; Referring Provider Family Medicine; Visit Provider Family Medicine
DX: Z00.00 Encounter for general adult medical examination without abnormal findings (principal); E78.2 Mixed hyperlipidemia; J44.9 Chronic obstructive pulmonary disease, unspecified
CPT/HCPCS: 36415; 80061

== ENCOUNTER → 2025-08-02 08:04 | Outpatient (CLI) | payer MEDICARE, SELFPAY ==
[2025-08-02 08:29] LABS: Hematocrit 40.7 % (41-53); Hemoglobin 14.2 g/dL (13.5-17.5); Mean Corpuscular HGB Conc 34.8 % (30-36); Mean Corpuscular Hemoglobin 31.3 PG (26-34); Mean Corpuscular Volume 89.7 fL (80-100); Platelet Count 294 X10^3/uL (150-400)
[2025-08-02 08:42] LABS: Hemoglobin A1C% w Est Avg Glu 5.1 % (4.0-6.0)
[2025-08-02 08:59] LABS: Alanine Aminotransferase 14 IU/L (<50); Albumin 4.4 g/dL (3.5-5.0); Albumin Globulin Ratio 1.5 (1.0-2.8); Alkaline Phosphatase 70 U/L (38-126); Blood Urea Nitrogen 21 mg/dL (9-20); Calcium 9.5 mg/dL (8.4-10.2); Carbon Dioxide 27 mmol/L (22-32); Chloride 104 mmol/L (98-107); Cholesterol 250 mg/dL (140-199); Estimated Glomerular Filt Rate > 60 mL/min (>60); Globulin 2.9 g/dL (1.7-4.1); Glucose 93 mg/dL (70-99); HDL Cholesterol 77 mg/dL (40-60); HEMOLYSIS < 15 (0-50); Potassium 4.4 mmol/L (3.4-5.1); Sodium 137 mmol/L (137-145); Total Protein 7.3 g/dL (6.3-8.2); Triglycerides 100 mg/dL (35-150)
== END ==
PROVIDERS: PCP Family Medicine; Referring Provider Family Medicine; Visit Provider Family Medicine
DX: E78.2 Mixed hyperlipidemia (principal)
CPT/HCPCS: 36415; 80053; 80061; 83036; 85027

== ENCOUNTER → 2025-08-23 08:07 | Outpatient (CLI) | payer MEDICARE, SELFPAY | PROVIDERS: PCP Family Medicine; Referring Provider Family Medicine; Visit Provider Family Medicine | DX: Z12.5 Encounter for screening for malignant neoplasm of prostate (principal) | CPT/HCPCS: 36415; G0103 ==

== ENCOUNTER → 2025-08-30 09:09 | Outpatient (CLI) | payer MEDICARE, SELFPAY | PROVIDERS: PCP Family Medicine; Referring Provider Family Medicine; Visit Provider Family Medicine | DX: Z12.11 Encounter for screening for malignant neoplasm of colon (principal) | CPT/HCPCS: 82274 ==

== ENCOUNTER → 2025-09-21 08:47 | Outpatient (CLI) | payer MEDICARE, SELFPAY ==
--- NOTE | 2025-09-21 08:49 | DI.CT.S_ITS ---
PROCEDURE: CT LUNG LOW DOSE SCREENING INDICATIONS: lung cancer screening TECHNIQUE: Noncontrast 2.0-2.5 mm thick sections acquired from the pulmonary apices to the posterior costophrenic angles. 7 mm thick axial MIP, and 5 mm coronal and sagittal reformats were then acquired. For radiation dose reduction, the following was used: automated exposure control, adjustment of mA and/or kV according to patient size. COMPARISON: [facility], CT, CT CHEST WO CON, 06/10/2024, 13:55. FINDINGS: Image quality: Diagnostic. Lower Neck: No enlarged lymph nodes. Thyroid: No thyroid nodules which require sonographic follow up, per consensus guidelines. Axillae: No enlarged lymph nodes. Chest Wall: Unremarkable. Bones: Unremarkable. Lungs and Pleura: No pneumothorax or pleural effusions. Very severe COPD with emphysematous change in bilateral lung and mild pleural scarring. No new pulmonary nodule has developed with reference to prior noncontrast chest CT scanning. Heart: Heart size is normal. No pericardial effusion. Thoracic Vessels: The aorta and pulmonary arteries demonstrate normal size. Mediastinum and Agustina: No enlarged lymph nodes. Esophagus: No wall thickening. No hiatal hernia. Upper Abdomen: Visualized upper abdomen solid organs and bowel loops appear normal. IMPRESSION: No suspicious pulmonary nodules. LUNG-RADS 1; continued annual screening, if eligible. Clinically Significant Non-pulmonary Findings: Very severe COPD with associated areas of lung scarring and also mild pleural scarring. Reported continuing smoking, and in rolling the patient in a yearly screening CT protocol for early detection of lung carcinoma appears warranted if this has not yet been established. Dictated by: Jose Abraham M.D. on 09/22/2025 at 14:56 Approved by: Jose Abraham M.D. on 09/22/2025 at 14:59
== END ==
LOC: CT 08:48
PROVIDERS: PCP Family Medicine; Referring Provider Internal Medicine Critical Care Medicine; Visit Provider Internal Medicine Critical Care Medicine
DX: Z12.2 Encounter for screening for malignant neoplasm of respiratory organs (principal); J44.9 Chronic obstructive pulmonary disease, unspecified; Z87.891 Personal history of nicotine dependence
CPT/HCPCS: 71271

== ENCOUNTER 2025-10-02 09:40 | Day surgery (SDC) | payer MEDICARE, SELFPAY ==
[2025-09-27 08:54] VITALS: BMI 19.3
[2025-10-02 10:37] VITALS: BP 138/92; PULSE 104; RESP 16; TEMP 36.6; O2SAT 98
[2025-10-02 10:42] VITALS: BP 138/92; PULSE 104; RESP 16; TEMP 36.6; O2SAT 98
[2025-10-02] MEDS: LACTATED RINGERS 1,000 ML 42 ML IV (10:50)
--- NOTE | 2025-10-02 11:07 | PM.HP.IH.1 ---
History of Present Illness History of Present Illness Date Patient Seen: 10/02/25 Time Patient Seen: 11:07 Chief complaint: Colonoscopy Narrative: Richie is a 70-year-old man here for colonoscopy. He was never had one before. No family history of colon cancer. [facility] Medical History (Updated 10/02/25 @ 11:07 by Amadeo Hammonds MD) Abnormal chest xray (~1989) Depression (~1994) Pneumothorax (~2022) Surgical History (Updated 09/27/25 @ 08:55 by Moira Turcios RN) H/O video-assisted thoracoscopic surgery (VATS) Anesthesia History of surgery (~05/2023) Benign tumor (~2014) Family History Father Lung disease Mother Anxiety disorder Brother Lung disease Brother Bladder cancer Social History household members: spouse and family Smoking Status: Former smoker alcohol intake: never Meds Home Medications and Allergies Home Medications ?Medication ?Instructions ?Recorded ?Confirmed ?Type albuterol sulfate 90 mcg/actuation 2 inh inhalation Q4-6H PRN 07/01/24 10/02/25 Rx breath activated powder inhaler shortness of breath or wheezing #1 ea umeclidinium 62.5 mcg/actuation 1 inh inhalation DAILY #30 ea 09/28/25 10/02/25 Rx blister powder for inhalation (Incruse Ellipta) Allergies Allergy/AdvReac Type Severity Reaction Status Date / Time oxycodone AdvReac Severe Unconscious Verified 10/02/25 10:14 /unresponsi ve acetaminophen (From Vicodin) AdvReac Mild Verified 10/02/25 10:18 hydrocodone (From Vicodin) AdvReac Mild Verified 10/02/25 10:18 Exam Vital Signs (past 8 hours): - 10/02/25 10:22 10/02/25 10:37 10/02/25 10:42 Temperature 97.9 F 97.9 F Pulse Rate 104 H 104 H Respiratory Rate 16 16 Blood Pressure 138/92 H 138/92 H Pulse Oximetry 98 98 Oxygen Delivery Method Room Air Room Air Room Air Oxygen Delivery Method Room Air Const General: No acute distress Assessment & Plan Assessment and plan (1) Colon cancer screening: Status: Acute Plan Colonoscopy Time-Based Coding :: [TOTAL MINUTES] spent with patient and on the chart (including review of chart, obtaining history, exam, reviewing outside data, placing orders, documenting exam and treatment plan, and counseling patient) on [DATE]. [employer] Network Administrator Document charge(s): No
[2025-10-02 11:40] VITALS: BP 95/63; PULSE 87; RESP 16; TEMP 36.2; O2SAT 96
--- NOTE | 2025-10-02 11:42 | P.HP_ITS ---
History of Present Illness History of Present Illness Chief complaint: Colonoscopy Narrative: Richie is a 70-year-old man here for colonoscopy. He was never had one before. No family history of colon cancer. [facility] Medical History (Updated 10/02/25 @ 11:07 by Amadeo Hammonds MD) Abnormal chest xray (~1989) Depression (~1994) Pneumothorax (~2022) Surgical History (Updated 09/27/25 @ 08:55 by Moira Turcios RN) H/O video-assisted thoracoscopic surgery (VATS) Anesthesia History of surgery (~05/2023) Benign tumor (~2014) Family History Father Lung disease Mother Anxiety disorder Brother Lung disease Brother Bladder cancer Social History household members: spouse and family Smoking Status: Former smoker alcohol intake: never Meds Home Medications and Allergies Home Medications ?Medication ?Instructions ?Recorded ?Confirmed ?Type albuterol sulfate 90 mcg/actuation 2 inh inhalation Q4 -6H PRN 07/01/24 10/02/25 Rx breath activated powder inhaler shortness of breath or wheezing #1 ea umeclidinium 62.5 mcg/actuation See Rx Instructions .R oute DAILY 10/02/25 Rx blister powder for inhalation #30 ea (Incruse Ellipta) Allergies Allergy/AdvReac Type Severity Reaction Status Date / Time oxycodone AdvReac Severe Unconscious Verified 10/02/25 10:14 /unresponsi ve acetaminophen (From Vicodin) AdvReac Mild Verified 10/02/25 10:18 hydrocodone (From Vicodin) AdvReac Mild Verified 10/02/25 10:18 Exam Vital Signs (past 8 hours): - 10/02/25 10:22 10/02/25 10:37 10/02/25 10:42 Temperature 97.9 F 97.9 F Pulse Rate 104 H 104 H Respiratory Rate 16 16 Blood Pressure 138/92 H 138/92 H Pulse Oximetry 98 98 Oxygen Delivery Method Room Air Room Air Room Air Oxygen Delivery Method Room Air Assessment & Plan Assessment and plan (1) Colon cancer screening: Status: Acute Plan Colonoscopy Time-Based Coding :: [TOTAL MINUTES] spent with patient and on the chart (including review of chart, obtaining history, exam, reviewing outside data, placing orders, documenting exam and treatment plan, and counseling patient) on [DATE]. [employer] Document charge(s): No
--- NOTE | 2025-10-02 11:42 | PM.OP.COLON ---
Operative Date/Time/Diagnoses Date of procedure: 10/02/25 Time of procedure: 11:43 Pre-op diagnosis: Colon cancer screening Post-op diagnosis: same Procedure & Clinicians Study performed: Colonoscopy Same procedure(s) as scheduled: Yes Surgeon: Amadeo Hammonds Anesthesia Type: MAC +/- Procedure Notes Procedure in detail: Surgeon: Amadeo Hammonds MD Anesthesia: Eileen Tenorio CRNA Procedure: The patient was brought to the endoscopy suite, placed in left lateral decubitus position. The patient was connected to monitoring devices. A time-out was performed. Sedation was administered. Once the patient was adequately sedated, a digital rectal exam was performed and was normal. The scope was then inserted and advanced to the cecum where the appendiceal orifice was identified and photographed. The scope was then slowly withdrawn over greater than 6 minutes. The mucosa was thoroughly inspected. No polyps were found. The scope was retroflexed in the rectum. The scope was straightened and removed. The patient was awakened and brought to recovery. Scope withdrawal time: 6 minutes Sedation time: 12 minutes Findings: Normal colon Estimated Blood Loss: 0 Complications: none Post-procedure Recommendations: Colonoscopy in 10 years Disposition: PACU
[2025-10-02 11:46] VITALS: BP 97/65; PULSE 82; RESP 16; O2SAT 96
[2025-10-02 11:51] VITALS: BP 104/65; PULSE 89; RESP 21; TEMP 36.2; O2SAT 98
== END 2025-10-02 12:20 | disposition home or self-care (01) ==
PROVIDERS: PCP Family Medicine; Referring Provider Surgery; Visit Provider Surgery
PROC: 0DJD8ZZ Inspection of Lower Intestinal Tract, Via Natural or Artificial Opening Endoscopic (ICD-10-PCS; CPT 45378; principal; 2025-10-02 11:00)
DX: Z12.11 Encounter for screening for malignant neoplasm of colon (principal)
CPT/HCPCS: G0121; J2704; J7120